=== PATIENT | male | born 1970 | race Caucasian/White ===

== ENCOUNTER 2018-04-14 01:46 | Emergency (ER) | payer MEDICARE, MEDICAID ==
[2018-04-14] MEDS ORDERED: KETOROLAC 30 MG/ML VIAL IVP ONE (02:09)
[2018-04-14] MEDS ORDERED: ONDANSETRON HCL IV 4 MG/2 ML VIAL IV ONE (02:09)
[2018-04-14] MEDS ORDERED: 0.9 % SODIUM CHLORIDE 1,000 ML BAG IV ONE ×2 (02:09→03:04)
[2018-04-14 02:18] LABS: BASO % 0.5 % (0-6); EOS % 0.7 % (0-6); GRAN % 73.8 % (47-80); HEMATOCRIT 49.9 % (42.0-52.0); HEMOGLOBIN 17.9 gm/dl (14.0-18.0); LYMPH % 18.2 % (16-45); MEAN CELL VOLUME 82.1 fl (81-97); MEAN CORPUSCULAR HEMOGLOBIN 29.4 pg (27-33); MEAN CORPUSCULAR HGB CONC 35.9 g/dl (32-36); MEAN PLATELET VOLUME 11.4 fl (7.4-10.4); MONO % 6.8 % (0-9); PLATELET COUNT 329 K/uL (130-400); RED BLOOD COUNT 6.08 M/uL (4.40-5.70); RED CELL DISTRIBUTION WIDTH 13.9 % (11.5-14.5); WHITE BLOOD COUNT W/O DIFF 12.2 K/uL (4.2-12.2)
--- NOTE | 2018-04-14 02:27 | Emergency Department Record ---
History of Present Illness - General Chief Complaint: Abdominal Pain Stated Complaint: ABDOMINAL PAIN Time Seen by Provider: 04/14/18 02:05 Source: Patient Mode of Arrival: Ambulatory Limitations: No limitations - History of Present Illness Initial Comments: pt started having l flank pain and llq pain which got much worse today. pt has had kidney stones in the past MD Complaint: Abdominal pain, Flank pain Onset/Timin -: Days(s) Location: [facility] Radiation: None Migration to: No migration Severity: Moderate Severity scale (1-10): 9 Quality: Aching, Sharp Consistency: Constant Improves With: Nothing Worsens With: Nothing Associated Symptoms: Denies other symptoms - Related Data Home Medications Medication Instructions Recorded Confirmed Last Taken No Home Med [NO HOME MEDS] 04/14/18 04/14/18 Unknown Allergies Allergy/AdvReac Type Severity Reaction Status Date / Time No Known Drug Allergies Allergy Verified 09/28/15 08:48 Travel Screening - Travel/Exposure Within Last 30 Days Have you traveled within the last 30 days?: No - Travel/Exposure Within Last Year Have you traveled outside the [place] in the last year?: No - Additonal Travel Details Have you been exposed to anyone with a communicable illness?: No - Travel Symptoms Symptom Screening: None Review of Systems Reviewed: No additional complaints except as noted below Constitutional: Reports: As per HPI. Denies: Chills, Fever, Malaise, Night sweats, Weakness, Weight change Eyes: Reports: As per HPI. Denies: Eye discharge, Eye pain, Photophobia, Vision change ENT: Reports: As per HPI. Denies: Congestion, Dental pain, Ear pain, Epistaxis , Hearing loss, Throat pain Respiratory: Reports: As per HPI. Denies: Cough, Dyspnea, Hemoptysis, Stridor, Wheezes Cardiovascular: Reports: As per HPI. Denies: Arrhythmia, Chest pain, Dyspnea on exertion, Edema, Murmurs, Orthopnea, Palpitations, Paroxysmal nocturnal dyspnea, Rheumatic Fever, Syncope Endocrine: Reports: As per HPI. Denies: Fatigue, Heat or cold intolerance, Polydipsia, Polyuria Gastrointestinal: Reports: As per HPI. Denies: Abdominal pain, Constipation, Diarrhea, Hematemesis, Hematochezia, Melena, Nausea, Vomiting Genitourinary: Reports: As per HPI. Denies: Dysuria, Frequency, Hematuria, Incontinence, Retention, Testicular pain, Testicular mass, Urgency Musculoskeletal: Reports: As per HPI. Denies: Arthralgia, Back pain, Gout, Joint swelling, Myalgia, Neck pain Skin: Reports: As per HPI. Denies: Bruising, Change in color, Change in hair/ nails, Lesions, Pruritus, Rash Neurological: Reports: As per HPI. Denies: Abnormal gait, Confusion, Headache, Numbness, Paresthesias, Seizure, Tingling, Tremors, Vertigo, Weakness Psychiatric: Reports: As per HPI. Denies: Anxiety, Auditory hallucinations, Depression, Homicidal thoughts, Suicidal thoughts, Visual hallucinations Hematological/Lymphatic: Reports: As per HPI. Denies: Anemia, Blood Clots, Easy bleeding, Easy bruising, Swollen glands Past Medical History - SOCIAL HISTORY Smoking Status: Former smoker Alcohol Use: None Drug Use: Occasional Drug Use Detail:: Marijuana - RESPIRATORY Hx Respiratory Disorders: No - CARDIOVASCULAR Hx Cardio Disorders: Yes Hx Hypertension: Yes (STOPPED MED HIMSELF) - NEURO Hx Neuro Disorders: No - GI Hx GI Disorders: No - Hx Genitourinary Disorders: Yes Hx Kidney Stones: Yes - ENDOCRINE Hx Endocrine Disorders: No - MUSCULOSKELETAL Hx Musculoskeletal Disorders: No - PSYCH Hx Psych Problems: No Hx Anxiety: No Hx Depression: No Comment:: Bilpolar; schizophrenia - HEMATOLOGY/ONCOLOGY Hx Hematology/Oncology Disorders: No Family Medical History Any Significant Family History?: Yes Hx Diabetes: Father *Diabetes Comment: Uncle Hx Heart Disease: Grandparents Physical Exam - General General Appearance: Alert, Oriented x3, Cooperative, Mild distress - Head Head exam: Normal inspection - Eye Eye exam: Normal appearance, PERRL, EOMI Pupils: Normal accommodation - ENT ENT exam: Normal exam, Mucous membranes moist, Normal external ear exam, Normal orophraynx Ear exam: Normal external inspection. negative: External canal tenderness Nasal Exam: Normal inspection. negative: Discharge, Sinus tenderness Mouth exam: Normal external inspection, Tongue normal Teeth exam: Normal inspection. negative: Dental caries Throat exam: Normal inspection. negative: Tonsillar erythema, Tonsillar exudate - Neck Neck exam: Normal inspection, Full ROM. negative: Tenderness - Respiratory Respiratory exam: Normal lung sounds bilaterally. negative: Respiratory distress - Cardiovascular Cardiovascular Exam: Regular rate, Normal rhythm, Normal heart sounds - GI/Abdominal GI/Abdominal exam: Soft, Normal bowel sounds, Tenderness (llq) - Rectal Rectal exam: Deferred - exam: Deferred - Extremities Extremities exam: Normal inspection, Full ROM, Normal capillary refill. negative: Tenderness - Back Back exam: Reports: Normal inspection, Full ROM. Denies: Muscle spasm, Rash noted, Tenderness - Neurological Neurological exam: Alert, CN II-XII intact, Normal gait, Oriented X3 - Psychiatric Psychiatric exam: Normal affect, Normal mood - Skin Skin exam: Dry, Intact, Normal color, Warm Course Vital Signs 04/14/18 01:52 Temperature 98.2 F Pulse Rate 148 H Respiratory 20 Rate Blood Pressure 136/104 Pulse Ox 97 - Reevaluation(s) Reevaluation #1: 04/14/18 03:54 pt states he has been dxd w diabetes previously but it got better so he quit his meds. Reevaluation #2: 04/14/18 03:55 pts umbilical hernia is nontender Medical Decision Making - Lab Data Result diagrams: 04/14/18 02:00 04/14/18 02:00 Lab Results 04/14/18 Range/Units 02:00 WBC 12.2 (4.2-12.2) K/uL RBC 6.08 H (4.40-5.70) M/uL Hgb 17.9 (14.0-18.0) gm/dl Hct 49.9 (42.0-52.0) % MCV 82.1 (81-97) fl MCH 29.4 (27-33) pg MCHC 35.9 (32-36) g/dl RDW 13.9 (11.5-14.5) % Plt Count 329 (130-400) K/uL MPV 11.4 H (7.4-10.4) fl Gran % 73.8 (47-80) % Lymphocytes % 18.2 (16-45) % Monocytes % 6.8 (0-9) % Eosinophils % 0.7 (0-6) % Basophils % 0.5 (0-6) % Disposition Disposition: Discharge Clinical Impression: Left flank pain Hyperglycemia due to type 2 diabetes mellitus Qualifiers: Diabetes mellitus fdc insulin use: without fdc use Qualified Code(s ): E11.65 - Type 2 diabetes mellitus with hyperglycemia Disposition: Home, Self-Care Condition: (1) Good Instructions: Flank Pain (ED), Diabetic Hyperglycemia (ED) Additional Instructions: follow up with family doctor today. return sooner if worse. monitor blood sugars Forms: Patient Portal Access Quality - Quality Measures Quality Measures: N/A - Blood Pressure Screening Does Patient Have Any of the Following: No Blood Pressure Classification: Hypertensive Reading Systolic Measurement: 136 Diastolic Measurement: 104 Screening for High Blood Pressure: < Pre-Hypertensive BP, F/U Documented > [ [id number]] Pre-Hypertensive Follow-up Interventions: Follow-up with rescreen every year.
[2018-04-14 02:31] LABS: BLOOD UREA NITROGEN 14 mg/dL (6-20); EST GLOMERULAR FILTRATION RATE > 60 mL/min
[2018-04-14 02:33] LABS: GLUCOSE,RANDOM 400 mg/dL (74-109)
[2018-04-14 02:53] LABS: URINE APPEARANCE CLEAR; URINE BILIRUBIN NEGATIVE (NEGATIVE); URINE BLOOD TRACE-I (NEGATIVE); URINE COLOR YELLOW; URINE KETONE TRACE (NEGATIVE); URINE LEUKOCYTE ESTERASE NEGATIVE (NEGATIVE); URINE NITRITE NEGATIVE (NEGATIVE); URINE PROTEIN TRACE (NEGATIVE); URINE UROBILINOGEN 0.2 E.U./dL (0.20 - 1.00)
[2018-04-14 02:54] LABS: URINE GLUCOSE (UA) >=1000 mg/dL (NEGATIVE)
[2018-04-14 03:02] LABS: URINE EPITHELIAL CELLS 0 - 2 (FEW); URINE RBC 0 - 2 (NONE SEEN); URINE WBC NONE SEEN (0-2/hpf)
[2018-04-14] MEDS ORDERED: HUMULIN R 100 UNIT/ML VIAL SQ ONE (03:08)
[2018-04-14 03:10] LABS: ACETONE,SERUM NEGATIVE (NEGATIVE)
--- NOTE | 2018-04-14 14:59 | CT SCAN REPORT ---
EXAM: CT OF THE ABDOMEN AND PELVIS WITHOUT CONTRAST HISTORY: LEFT FLANK PAIN FOR TWO DAYS. TECHNIQUE: Noncontrast CT of the abdomen and pelvis was obtained. Comparison: Noncontrast CT of the abdomen and pelvis 09/23/15. FINDINGS: No significant abnormalities in the visualized lung bases. Hepatic steatosis. Unremarkable noncontrast appearance of the gallbladder, adrenal glands, spleen, and pancreas. No hydronephrosis. Left intrarenal calculus near the lower pole measuring up to 3 mm. No definite right intrarenal calculi. No calculi detected in the ureters or urinary bladder. No focal colonic thickening or inflammatory changes. Scattered colonic diverticulosis without evidence of acute diverticulitis. The appendix appears non-thickened and noninflamed. The stomach and small bowel are nondilated. No mesenteric or retroperitoneal adenopathy [id number]. No free air or free fluid. Small fat containing umbilical hernia containing only fat, hernia abdominal wall defect measuring approximately 10 mm. The abdominal aorta appears nondilated. Healed right lower rib fractures. No definite acute osseous findings. IMPRESSION: 1. NONOBSTRUCTING SMALL LEFT INTRARENAL CALCULUS. NO EVIDENCE OF OBSTRUCTIVE UROPATHY. 2. SMALL UMBILICAL HERNIA CONTAINING ONLY FAT. 3. HEPATIC STEATOSIS. 4. MILD COLONIC DIVERTICULOSIS WITHOUT EVIDENCE OF ACUTE DIVERTICULITIS. JOB NUMBER: [id number] [facility]
== END 2018-04-14 04:03 | disposition home or self-care (01) ==
LOC: ER 01:46
DX: E11.65 Type 2 diabetes mellitus with hyperglycemia (principal); R10.12 Left upper quadrant pain; K42.9 Umbilical hernia without obstruction or gangrene; I10 Essential (primary) hypertension; Z87.442 Personal history of urinary calculi; Z87.891 Personal history of nicotine dependence
CPT/HCPCS: 36416; 74176; 80048; 81001; 82009; 82800; 82948; 85025; 93005; 93010; 96372; 96374; 96375; 99284; J1885; J2405; J7030

== ENCOUNTER 2018-08-29 07:59 | Emergency (ER) | payer MEDICARE, MEDICAID ==
--- NOTE | 2018-08-29 08:23 | Emergency Department Record ---
History of Present Illness - General Chief complaint: Dental Stated complaint: DENTAL PAIN Time Seen by Provider: 08/29/18 08:20 Source: Patient, RN notes reviewed Mode of Arrival: Ambulatory - History of Present Illness Initial comments: dental pain and he has decay and pain and he was seen by a dentist 2 months ago and not able to afford the surgical procedure required. patient says the tooth is hurting and his dentist is Dr. Barbosa. Motrin is helping the pain but the pain started back up in the last two days MD complaint: Tooth pain Severity scale (1-10): 6 - Related Data Home Medications Medication Instructions Recorded Confirmed Last Taken Metoprolol Tartrate [Lopressor] 25 mg PO DAILY 08/29/18 08/29/18 08/29/18 Previous Rx's Medication Instructions Recorded Ibuprofen [Motrin] 800 mg PO Q8H PRN #30 tab 08/29/18 Penicillin V Potassium 500 mg PO QID #40 tablet 08/29/18 Allergies Allergy/AdvReac Type Severity Reaction Status Date / Time No Known Drug Allergies Allergy Verified 08/29/18 08:07 Travel Screening - Travel/Exposure Within Last 30 Days Have you traveled within the last 30 days?: No - Travel/Exposure Within Last Year Have you traveled outside the [place] in the last year?: No - Additonal Travel Details Have you been exposed to anyone with a communicable illness?: No - Travel Symptoms Symptom Screening: None Review of Systems Reviewed: No additional complaints except as noted below Constitutional: Reports: As per HPI. Denies: Chills, Fever, Malaise, Night sweats, Weakness, Weight change Eyes: Reports: As per HPI. Denies: Eye discharge, Eye pain, Photophobia, Vision change ENT: Reports: As per HPI, Dental pain. Denies: Congestion, Ear pain, Epistaxis , Hearing loss, Throat pain Respiratory: Reports: As per HPI. Denies: Cough, Dyspnea, Hemoptysis, Stridor, Wheezes Cardiovascular: Reports: As per HPI. Denies: Arrhythmia, Chest pain, Dyspnea on exertion, Edema, Murmurs, Orthopnea, Palpitations, Paroxysmal nocturnal dyspnea, Rheumatic Fever, Syncope Endocrine: Reports: As per HPI. Denies: Fatigue, Heat or cold intolerance, Polydipsia, Polyuria Gastrointestinal: Reports: As per HPI. Denies: Abdominal pain, Constipation, Diarrhea, Hematemesis, Hematochezia, Melena, Nausea, Vomiting Genitourinary: Reports: As per HPI. Denies: Dysuria, Frequency, Hematuria, Incontinence, Retention, Testicular pain, Testicular mass, Urgency Musculoskeletal: Reports: As per HPI. Denies: Arthralgia, Back pain, Gout, Joint swelling, Myalgia, Neck pain Skin: Reports: As per HPI. Denies: Bruising, Change in color, Change in hair/ nails, Lesions, Pruritus, Rash Neurological: Reports: As per HPI. Denies: Abnormal gait, Confusion, Headache, Numbness, Paresthesias, Seizure, Tingling, Tremors, Vertigo, Weakness Psychiatric: Reports: As per HPI. Denies: Anxiety, Auditory hallucinations, Depression, Homicidal thoughts, Suicidal thoughts, Visual hallucinations Hematological/Lymphatic: Reports: As per HPI. Denies: Anemia, Blood Clots, Easy bleeding, Easy bruising, Swollen glands Past Medical History - SOCIAL HISTORY Smoking Status: Former smoker Alcohol Use: None Drug Use: Occasional Drug Use Detail:: Marijuana - RESPIRATORY Hx Respiratory Disorders: No - CARDIOVASCULAR Hx Cardio Disorders: Yes Hx Hypertension: Yes (STOPPED MED HIMSELF) - NEURO Hx Neuro Disorders: No - GI Hx GI Disorders: No - Hx Genitourinary Disorders: Yes Hx Kidney Stones: Yes - ENDOCRINE Hx Endocrine Disorders: No - MUSCULOSKELETAL Hx Musculoskeletal Disorders: No - PSYCH Hx Psych Problems: No Hx Anxiety: No Hx Depression: No Comment:: Bilpolar; schizophrenia - HEMATOLOGY/ONCOLOGY Hx Hematology/Oncology Disorders: No Family Medical History Any Significant Family History?: Yes Hx Diabetes: Father *Diabetes Comment: Uncle Hx Heart Disease: Grandparents Physical Exam - General General Appearance: Alert, Oriented x3, Cooperative, No acute distress - Head Head exam: Normal inspection - Eye Eye exam: Normal appearance, PERRL Pupils: Normal accommodation - ENT ENT exam: Normal exam, Mucous membranes moist, Normal external ear exam, Normal orophraynx, TM's normal bilaterally Ear exam: Normal external inspection. negative: External canal tenderness Nasal Exam: Normal inspection. negative: Discharge, Sinus tenderness Mouth exam: Normal external inspection, Tongue normal Teeth exam: Dental caries (two teeth upper left central teeth black at the gum and loose and one is cracked), Fractured tooth # Throat exam: Normal inspection. negative: Tonsillar erythema, Tonsillar exudate - Neck Neck exam: Normal inspection, Full ROM. negative: Tenderness - Respiratory Respiratory exam: Normal lung sounds bilaterally. negative: Respiratory distress - Cardiovascular Cardiovascular Exam: Regular rate, Normal rhythm, Normal heart sounds - GI/Abdominal GI/Abdominal exam: Soft, Normal bowel sounds. negative: Tenderness - Rectal Rectal exam: Deferred - exam: Deferred - Extremities Extremities exam: Normal inspection, Full ROM, Normal capillary refill. negative: Tenderness - Back Back exam: Reports: Normal inspection, Full ROM. Denies: Muscle spasm, Rash noted, Tenderness - Neurological Neurological exam: Alert, Normal gait, Oriented X3, Reflexes normal - Psychiatric Psychiatric exam: Normal affect, Normal mood - Skin Skin exam: Dry, Intact, Normal color, Warm Course Vital Signs 08/29/18 08:00 Temperature 97.2 F L Pulse Rate 126 H Respiratory 16 Rate Blood Pressure 138/112 Pulse Ox 99 Disposition Clinical Impression: Pain, dental, Dental infection Disposition: Home, Self-Care Condition: (1) Good Instructions: Toothache (ED) Additional Instructions: follow up with his Dentist Dr. Barbosa Prescriptions: Ibuprofen [Motrin] 800 mg PO Q8H PRN #30 tab PRN Reason: Pain - Severe (8-10) Penicillin V Potassium 500 mg PO QID #40 tablet Forms: Patient Portal Access Time of Disposition: 08:32 Quality - Quality Measures Quality Measures: N/A - Blood Pressure Screening Does Patient Have Any of the Following: No, Active Dx of HTN Blood Pressure Classification: Hypertensive Reading Systolic Measurement: 138 Diastolic Measurement: 112 Screening for High Blood Pressure: Patient Exclusion, Hx of HTN [G9744]
== END 2018-08-29 08:38 | disposition home or self-care (01) ==
LOC: ER 07:59
DX: K04.7 Periapical abscess without sinus (principal); I10 Essential (primary) hypertension; F17.210 Nicotine dependence, cigarettes, uncomplicated
CPT/HCPCS: 99282